=== PATIENT | female | born 1960 | race Asian ===

== ENCOUNTER → 2017-07-17 | Outpatient (CLI) | payer BC | END | disposition home or self-care (01) | LOC: CFH 11:30 | PROVIDERS: ATTEND Genetic Counselor, MS | DX: Z12.31 Encounter for screening mammogram for malignant neoplasm of breast (principal) | CPT/HCPCS: 77063; G0202 ==

== ENCOUNTER → 2017-09-05 | Outpatient (CLI) | payer BC | END | disposition home or self-care (01) | LOC: CVU 13:55 | PROVIDERS: ATTEND Genetic Counselor, MS | DX: M79.605 Pain in left leg (principal); M79.604 Pain in right leg; R20.0 Anesthesia of skin | CPT/HCPCS: 93922 ==

== ENCOUNTER → 2018-11-26 | Outpatient (CLI) | payer BC | END | disposition home or self-care (01) | LOC: CFH 10:54 | PROVIDERS: ATTEND Genetic Counselor, MS | DX: Z12.31 Encounter for screening mammogram for malignant neoplasm of breast (principal) | CPT/HCPCS: 77063; 77067 ==

== ENCOUNTER 2019-02-27 12:01 | Outpatient (CLI) | payer BC | END 2019-02-27 23:59 | disposition home or self-care (01) | LOC: CFH 12:01 | PROVIDERS: ATTEND Genetic Counselor, MS | DX: M81.0 Age-related osteoporosis without current pathological fracture (principal) | CPT/HCPCS: 77080 ==

== ENCOUNTER 2020-03-27 07:14 | Outpatient (CLI) | payer BC | END 2020-03-27 23:59 | disposition home or self-care (01) | LOC: CFH 07:14 | PROVIDERS: ATTEND Genetic Counselor, MS | DX: Z12.31 Encounter for screening mammogram for malignant neoplasm of breast (principal); N64.89 Other specified disorders of breast | CPT/HCPCS: 77063; 77067 ==